=== PATIENT | male | born 1970 | race Caucasian/White ===

== ENCOUNTER 2016-08-08 04:15 | Emergency (ER) | payer OTHER | END 2016-08-08 06:00 | disposition home or self-care (01) | LOC: ER 04:15 | DX: K63.89 Other specified diseases of intestine (principal); G43.909 Migraine, unspecified, not intractable, without status migrainosus; Z79.899 Other long term (current) drug therapy; Z88.5 Allergy status to narcotic agent; Z91.013 Allergy to seafood | CPT/HCPCS: 36415; 96374; 96375 ==